=== PATIENT | male | born 1990 | race Native Hawaiian/Other Pacific Islander ===

== ENCOUNTER 2020-11-09 00:49 | Emergency (ER) | payer OTHER, BC ==
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
[2020-11-09 01:09] VITALS: BP 121/83; PULSE 114; RESP 18; TEMP 98.4
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
[2020-11-09 01:21] LABS: Basophils # (A) 0.1 k/uL (0-0.2); Basophils % (A) 1 %; Eosinophils # (A) 0.4 k/uL (0-0.7); Eosinophils % (A) 4 %; HCT 47.2 % (39.0-53.0); HGB 15.2 gm/dL (13.0-17.5); Lymphocytes # (A) 3.1 k/uL (1.0-4.8); Lymphocytes % (A) 27 %; MCH 27.4 pg (25.0-35.0); MCHC 32.2 g/dL (31.0-37.0); MCV 85.2 fL (80.0-100.0); Mean Platelet Volume 8.1; Monocytes # (A) 0.4 k/uL (0-1.0); Monocytes % (A) 3 %; Neutrophils # (A) 7.5 k/uL (1.3-7.7); Neutrophils % (A) 64 %; Platelet Count 304 k/uL (150-450); RBC 5.54 m/uL (4.30-5.90); RDW 13.3 % (11.5-15.5); WBC 11.6 k/uL (3.8-10.6)
[2020-11-09 01:41] LABS: ALT 49 U/L (4-49); AST 84 U/L (17-59); African American GFR (CKD) >90 (>60 ml/min/1.73 sqM); Albumin 4.3 g/dL (3.5-5.0); Alkaline Phosphatase 50 U/L (38-126); Anion Gap 12 mmol/L; Blood Urea Nitrogen 16 mg/dL (9-20); Calcium 8.7 mg/dL (8.4-10.2); Carbon Dioxide 20 mmol/L (22-30); Chloride 109 mmol/L (98-107); Glucose 94 mg/dL (74-99); Non-African American GFR(CKD) >90 (>60 ml/min/1.73 sqM); Potassium 4.4 mmol/L (3.5-5.1); Sodium 141 mmol/L (137-145); Total Bilirubin 0.3 mg/dL (0.2-1.3); Total Protein 7.1 g/dL (6.3-8.2)
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
[2020-11-09 01:49] LABS: Alcohol 201 mg/dL
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
[2020-11-09 02:13] LABS: INR 0.9 (<1.2); Prothrombin Time 9.7 sec (9.0-12.0)
[2020-11-09] MEDS ORDERED: IBUPROFEN 400 MG TAB PO STA (02:18)
[2020-11-09] MEDS ORDERED: HYDROcodone/APAP 5-325MG 1 EACH TAB PO STA (02:18)
[2020-11-09 02:20] LABS: Partial Thromboplastin Time 21.4 sec (22.0-30.0)
[2020-11-09 02:27] LABS: Appearance,Urine Clear (Clear); Bilirubin,Urine Negative (Negative); Blood,Urine Negative (Negative); Color,Urine Colorless; Glucose,Urine (UA) Negative (Negative); Ketones,Urine Negative (Negative); Leukocyte Esterase,Urine Negative (Negative); Nitrite,Urine Negative (Negative); Protein,Urine Negative (Negative); Specific Gravity,Urine 1.019 (1.001-1.035); Urobilinogen,Urine <2.0 mg/dL (<2.0)
[2020-11-09 02:49] LABS: Amphetamine Screen,Urine Detected (NotDetected); Barbiturate Screen,Urine Not Detected (NotDetected); Benzodiazepines Screen,Urine Not Detected (NotDetected); Cocaine Screen,Urine Not Detected (NotDetected); Methadone Screen, Urine Not Detected (NotDetected); Opiate Screen,Urine Not Detected (NotDetected); Oxycodone Screen, Urine Not Detected (NotDetected); Phencyclidine Screen,Urine Not Detected (NotDetected); Tricyclic Antidepressant,Urine Not Detected (NotDetected); Urn Cannabinoid Scrn Detected (NotDetected)
[2020-11-09] MEDS ORDERED: MORPHINE SULFATE 4 MG/ML SYRINGE IV STA (03:12)
[2020-11-09] MEDS ORDERED: SODIUM CHLORIDE 0.9% 1,000 ML IV ONE (03:56)
== END 2020-11-09 06:35 | disposition home or self-care (01) ==
LOC: EC 00:49
DX: S16.1XXA Strain of muscle, fascia and tendon at neck level, initial encounter (principal); V59.9XXA Occupant (driver) (passenger) of pick-up truck or van injured in unspecified traffic accident, initial encounter; F12.90 Cannabis use, unspecified, uncomplicated
CPT/HCPCS: 36415; 93005; 86900; 86901; 80053; 84484; 85025; 85610; 85730; 86850; 81003; 80306; 80320; 72170; 71045; 72125; 70450; 71260; 74177; 99284; 96374; J2270; Q9967

== ENCOUNTER 2022-06-04 04:25 | Emergency (ER) | payer BC ==
[2022-06-04 04:33] VITALS: BP 150/87; RESP 16; TEMP 98.5
[2022-06-04] MEDS ORDERED: hydrOXYzine HCL 25 MG TAB PO STA (04:50)
[2022-06-04] MEDS ORDERED: dexAMETHasone 2 MG TAB PO STA (04:50)
[2022-06-04] MEDS ORDERED: diphenhydrAMINE 50 MG CAP PO STA (04:50)
[2022-06-04] MEDS ORDERED: FAMOTIDINE 20 MG TAB PO STA (04:51)
--- NOTE | 2022-06-04 04:51 | ED ---
Allergic Reaction HPI - General Chief complaint: Dental/Oral Stated complaint: Facial swelling Time Seen by Provider: 06/04/22 04:46 Source: patient, RN notes reviewed, old records reviewed Mode of arrival: ambulatory - History of Present Illness Initial Comments: This is a 32-year-old male to the emergency department for evaluation. Patient has lip swelling edema. Patient awoke with the symptoms, was sleeping on a pillow and areas of her tetanus pillow appear to be the worst affected with the swelling. Right-sided right hand right cheek. Patient has no other complaints no shortness of breath no swelling of his tongue MD Complaint: allergic reaction -: hour(s) Exposure: unknown Symptoms: rash, itching, facial swelling, lip swelling Severity: moderate Treatment Prior to Arrival: benadryl Previous Allergy History: none - Related Data Previous Rx's Medication Instructions Recorded HYDROcodone/APAP 5-325MG [[place] 1 tab PO Q6HR PRN 3 Days #12 tab 11/09/20 5-325] Ibuprofen [Motrin] 600 mg PO Q8HR PRN #20 tab 11/09/20 Famotidine [Pepcid] 40 mg PO BID #28 tablet 06/04/22 hydrOXYzine HCL [Atarax] 25 mg PO TID PRN #15 tab 06/04/22 predniSONE 50 mg PO DAILY #5 tab 06/04/22 Allergies Allergy/AdvReac Type Severity Reaction Status Date / Time No Known Allergies Allergy Verified 06/04/22 04:33 Review of Systems ROS Statement: Those systems with pertinent positive or pertinent negative responses have been documented in the HPI. ROS Other: All systems not noted in ROS Statement are negative. Past Medical History Past Medical History: No Reported History History of Any Multi-Drug Resistant Organisms: None Reported Past Surgical History: No Surgical Hx Reported Past Psychological History: ADD/ADHD Past Alcohol Use History: Occasional Past Drug Use History: Marijuana General Exam General appearance: alert, in no apparent distress Head exam: Present: atraumatic, normocephalic, normal inspection Eye exam: Present: normal appearance, PERRL, EOMI. Absent: scleral icterus, conjunctival injection, periorbital swelling ENT exam: Present: normal exam, mucous membranes moist Neck exam: Present: normal inspection. Absent: tenderness, meningismus, lymphadenopathy Respiratory exam: Present: normal lung sounds bilaterally. Absent: respiratory distress, wheezes, rales, rhonchi, stridor Cardiovascular Exam: Present: regular rate, normal rhythm, normal heart sounds. Absent: systolic murmur, diastolic murmur, rubs, gallop, clicks GI/Abdominal exam: Present: soft, normal bowel sounds. Absent: distended, tenderness, guarding, rebound, rigid Extremities exam: Present: normal inspection, full ROM, normal capillary refill. Absent: tenderness, pedal edema, joint swelling, calf tenderness Back exam: Present: normal inspection Neurological exam: Present: alert, oriented X3, CN II-XII intact Psychiatric exam: Present: normal affect, normal mood Skin exam: Present: warm, dry, intact, normal color. Absent: rash Course Vital Signs 06/04/22 06/04/22 04:30 05:08 Temperature 98.5 F 98.5 F Pulse Rate 108 H 101 H Respiratory 16 16 Rate Blood Pressure 150/87 150/87 O2 Sat by Pulse 98 98 Oximetry - Reevaluation(s) Reevaluation #1: 06/04/22 Medical record is reviewed Patient symptoms are improved here in the ER Patient informed results and questions answered Medical Decision Making - Medical Decision Making 32-year-old male to the emergency department for a contact dermatitis and swelling, urticarial reaction. Hives patient symptoms are dramatically improved here in the ER and can be discharged home Disposition Clinical Impression: Contact dermatitis Disposition: HOME SELF-CARE Condition: Good Instructions (If sedation given, give patient instructions): Contact Dermatitis (ED) Prescriptions: hydrOXYzine HCL [Atarax] 25 mg PO TID PRN #15 tab PRN Reason: Itching Famotidine [Pepcid] 40 mg PO BID #28 tablet predniSONE 50 mg PO DAILY #5 tab Is patient prescribed a controlled substance at d/c from ED?: No Referrals: Diallo Murillo DO [Primary Care Provider] - 1-2 days Time of Disposition: 05:00
[2022-06-04 05:09] VITALS: PULSE 101
== END 2022-06-04 05:09 | disposition home or self-care (01) ==
LOC: EC 04:25
DX: L25.8 Unspecified contact dermatitis due to other agents (principal)
CPT/HCPCS: 99283; J8540